=== PATIENT | male | born 1940 | race Caucasian/White ===

== ENCOUNTER 2016-12-22 05:28 | Inpatient (IN) | payer MEDICARE, OTHER ==
[~2016-12-22] VITALS: Ht 175.3 cm; Wt 85.6 kg
--- NOTE | 2016-12-23 17:57 | OR ---
ADMIT: 12/22/2016 RM/LOC: [facility] MR#: [id number] [address] [id number] [place] [address] Operative/Delivery Room Report SEX: M AGE: 76 : 1940 SURGERY DATE: 12/22/2016 SURGEON: Bulmaro Neal MD PREOPERATIVE DIAGNOSIS: Right knee arthritis. POSTOPERATIVE DIAGNOSIS: Right knee arthritis. PROCEDURE PERFORMED: Right total knee arthroplasty. DIRECTOR OF GIFT PLANNING: Christiano Stahl PA-C IMPLANTS: DePuy Attune knee with an 8 femur, 7 tibia, 5 insert, 41 patella with SpeedSet glue. COMPLICATIONS: None. BLOOD LOSS: 50 mL. TOURNIQUET TIME: 64 minutes. INDICATION: Alfonso is a 76-year-old male with right knee arthritis. He had had fairly extensive nonoperative treatment in, I think [place]. He would have been considering doing total knee arthroplasty and then he kind of moved here. After seeing him here, we have kind of discussed treatment options with continuing conservative versus nonconservative treatment. Ultimately he wished to have knee replacement for pain from the arthritis, and so he is here for that today. DESCRIPTION OF PROCEDURE: The patient was identified in the preoperative holding area. Written informed consent was confirmed, site was marked. Brought to the OR, placed in supine. Anesthesia was induced, and the right leg was prepped and draped in the usual sterile fashion. Time-out was performed. Preop antibiotics were confirmed. We exsanguinated the leg and brought the tourniquet up to 300. Made a midline incision, raised the medial flap, made my medial parapatellar arthrotomy. Resected the synovium, the fat pad, and then drilled for my intramedullary guide for the femur. Made my cut there and then removed some of the meniscus mediolaterally and put my extramedullary guide on. Once I had that, taking 2 off the medial side and good slope with a varus valgus alignment, kind of set looked good, I went ahead and made that cut and checked with the gap repairer and checker. The 5 spacer fit in very nicely with full extension and was stable. Went ahead and measured for my femur cut measuring 8. I made my cut there and then my 4-in-1 block was placed. Made my 4th cut and then cut for the box. Trialed that with an 8 there and 5 spacer and that seemed to actually still get into full extension. It was a little snug, but he had full motion and it tracked very nicely. Went ahead and drilled for the lugs there. Free cut hand cut the patella, measured that for a 41, drilled the lugs and then exposed the proximal tibia. Again, before placing that femoral guide on, I did knock off a couple little ADMIT: 12/22/2016 RM/LOC: 510 [facility] MR#: [id number] [address] [place] [id number] [place] [address] Operative/Delivery Room Report SEX: M AGE: 76 : 1940 osteophytes off the back of the femur and stripped some in the posterior capsule to give it some more room. Then I measured a 7, drilled and cut for the chamfer cuts for the tibial tray, placed all my trial components, and again it tracked very nicely. Had full extension, good flexion, stable varus, valgus in extension. Stable anterior drawer, posterior hotel superintendent flexion, and it kind of moved really nice. I went ahead and removed all the trial components, washed with pulse lavage with bacitracin in injected, 60 mL of Marcaine with epinephrine into the stump remnant of the ACL, PCL, medial and lateral meniscus, the fat pad, quad tendon and synovium. Then washed, dried and mixed the cement, cemented the components in place. Allowed it to cure. Once it was cured, I removed the trial poly, placed my final poly. Again, tracked it very nicely. Closed with 1-Vicryl for the retinaculum, 0-Vicryl for the deep subcu, 2-0 for the subcutaneous, Monocryl for the skin with Prineo dressing. Anesthesia was withdrawn, brought to the postoperative care unit in good condition. No complications. Postoperatively, we will get him into rehab and give him pain control, DVT prophylaxis, and he will be seen by medical doctor for her perioperative medical management. Bulmaro Neal MD/ zafar JOB #: [id number] CC: Bulmaro Neal, Attending Physician Justin Alaniz, Family Physician
[2016-12-25] MEDS ORDERED: LEXAPRO DPS10 MG PO (17:34)
[2016-12-25] MEDS ORDERED: PROTONIX40 MG PO (17:34)
[2016-12-25] MEDS ORDERED: WELCHOL625 MG PO (17:34)
[2016-12-25] MEDS ORDERED: WELLBUTRIN XL300 MG PO (17:34)
[2016-12-25] MEDS ORDERED: CALTRATE-600 D600 MG PO (17:35)
[2016-12-25] MEDS ORDERED: GLUCOSAMINE/CHO1 TAB PO (17:35)
[2016-12-25] MEDS ORDERED: ZYRTEC DPS10 MG PO (17:35)
[2016-12-25] MEDS ORDERED: ASCORBIC ACID500 MG PO (17:35)
[2016-12-25] MEDS ORDERED: SLO NIACIN DPS500 MG PO (17:36)
[2016-12-25] MEDS ORDERED: VITAMIN D31000 UNIT PO (17:36)
[2016-12-25] MEDS ORDERED: ZOCOR40 MG PO (17:36)
[2016-12-25] MEDS ORDERED: UROXATRAL10 MG PO (17:36)
--- NOTE | 2016-12-29 08:07 | CO ---
ADMIT: 12/22/2016 RM/LOC: [facility] MR#: [id number] [address] [facility] [address] [place] [id number] [place] [address] Consultation Report SEX: M AGE: 76 : 1940 DATE OF CONSULTATION: 12/13/2016 ATTENDING PHYSICIAN: Bulmaro Neal CONSULTING PHYSICIAN: Carey Hess MD REASON FOR CONSULTATION: He is going to have a planned right total knee arthrotomy performed by Dr. Bulmaro Neal. HISTORY OF PRESENT ILLNESS: Mr. Joseph is a very nice 76-year-old white gentleman who has a past medical history of bilateral degenerative arthritis. He is going to have his right knee replaced initially. PAST MEDICAL HISTORY: He also has a past medical history of prostate cancer, hyperlipidemia, insomnia, anxiety, history of osteoporosis, and hyperlipidemia. SOCIAL HISTORY: He lives with his . He is retired. No tobacco use. He does drink up to seven drinks per week. Alcohol and mixed drinks. He has not had any difficulties with withdrawal. ALLERGIES: HE HAS NO KNOWN MEDICAL ALLERGIES. MEDICATIONS: 1. He is currently on:. Alfuzosin ER 10 mg daily. 1. Aspirin 81 mg daily. 2. Boniva 150 mg daily. 3. Bupropion HCL XL 300 mg daily. 4. Calcium daily. 5. Celebrex 200 mg one tablet p.o. daily. 6. Cefroxadine 10 mg daily. 7. Co Q10 100 mg daily. 8. Lexapro 10 mg daily. 9. Fish oil. 10.Nasal steroid cream. 11.Nasal steroid suspension for allergies. 12.Ginkgo biloba. 13.Glucosamine. 14.Lupron. 15.Melatonin. 16.Niacin. 17.Vitamin D. 18.Welchol. 19.Ambien. FAMILY HISTORY: Both his parents have had a history of colon cancer. REVIEW OF SYSTEMS: His general sense of health is good. He reports his ADMIT: 12/22/2016 RM/LOC: [facility] MR#: [id number] [address] [id number] [place] [address] Consultation Report SEX: M AGE: 76 : 1940 activity tolerance and endurance is good. He still mows his lawn. He has had no anterior chest pain or chest pressure. Denies any increasing shortness of breath or respiratory distress. Denies any changes in his bowel or bladder habits. Any melena, hematochezia, or peripheral edema. His exercise tolerance and endurance is good. PHYSICAL EXAMINATION: GENERAL: He is alert, articulate. VITAL SIGNS: His weight is 189 pounds. His blood pressure is 132/78, pulse is 58. His SaO2 is 97% on room air HEENT: Exam is normal. HEART: Regular rhythm. LUNGS: Clear but diminished to auscultation. ABDOMEN: Soft, nontender, nondistended. EXTREMITIES: No evidence of peripheral edema noted. ASSESSMENT: Admission of a 76-year-old white gentleman for planned total knee arthrotomy. At this time, I see no contraindication to proceeding with surgery. EKG showed normal sinus rhythm. His BNP and CBC were normal. We will follow in the postop period. We will utilize a full strength aspirin as DVT prophylaxis as well as early ambulation. We will watch and follow closely while hospitalized. Carey Hess MD/ kassie JOB #: [id number] CC: Bulmaro Neal, Attending Physician Justin Alaniz, Family Physician
== END 2016-12-24 18:30 | disposition home or self-care (01) | DRG 470 ==
LOC: 5MS 05:28 → WOR 05:28 → 5MS 09:36
PROVIDERS: ADMIT Student in an Organized Health Care Education/Training Program
PROC: 0SRC0J9 Replacement of Right Knee Joint with Synthetic Substitute, Cemented, Open Approach (ICD-10-PCS; principal; 2016-12-22)
DX: M17.11 Unilateral primary osteoarthritis, right knee (principal); F32.9 Major depressive disorder, single episode, unspecified; E78.5 Hyperlipidemia, unspecified; G47.00 Insomnia, unspecified; F41.9 Anxiety disorder, unspecified; M81.0 Age-related osteoporosis without current pathological fracture; K21.9 Gastro-esophageal reflux disease without esophagitis; N40.0 Benign prostatic hyperplasia without lower urinary tract symptoms; Z85.828 Personal history of other malignant neoplasm of skin; Z87.891 Personal history of nicotine dependence; Z79.82 Long term (current) use of aspirin; Z85.46 Personal history of malignant neoplasm of prostate